=== PATIENT | female | born 1955 | race Caucasian/White ===

== ENCOUNTER 2016-11-03 13:48 | Observation (INO) | payer MEDICARE ==
[~2016-11-03] VITALS: Ht 160 cm; Wt 77.1 kg
[2016-11-03 15:12] LABS: HEMOGLOBIN 11.9 gm/dl (12.3-15.3); RED BLOOD COUNT 3.8 M/UL (4.00-5.10); WHITE BLOOD COUNT 4.2 K/UL (4.5-11.0)
[2016-11-03 15:37] LABS: BUN/CREATININE RATIO 16 (0-10)
[2016-11-04 05:49] LABS: HEMOGLOBIN 12.2 gm/dl (12.3-15.3); RED BLOOD COUNT 3.86 M/UL (4.00-5.10); WHITE BLOOD COUNT 4.9 K/UL (4.5-11.0)
[2016-11-04 06:11] LABS: BUN/CREATININE RATIO 14 (0-10)
[2016-11-04] MEDS ORDERED: SYNTHROID 50 M50 MCG PO (10:23)
[2016-11-04] MEDS ORDERED: LEVOTHYROXINE75 MCG PO (10:24)
[2016-11-04] MEDS ORDERED: CITALOPRAM HBR20 MG PO (10:24)
[2016-11-04] MEDS ORDERED: GLUCOPHAGE 500500 MG PO (10:27)
[2016-11-04] MEDS ORDERED: ZOCOR 40 MG TAB40 MG PO (10:27)
[2016-11-04] MEDS ORDERED: BACTROBAN CREAM15 GM EXT (10:28)
[2016-11-04] MEDS ORDERED: ALPRAZOLAM0.5 MG PO (10:28)
[2016-11-04] MEDS ORDERED: LORTAB 7.5-3251 EACH PO (10:29)
[2016-11-04] MEDS ORDERED: LACTULOSE20 GM/30 M PO (13:51)
== END 2016-11-04 15:19 | disposition home or self-care (01) ==
LOC: ER1 13:48 → M/S 17:50 → ZEROF 17:50 → M/S 21:37
PROVIDERS: Emergency Medicine; ADMIT Emergency Medicine
DX: K72.90 Hepatic failure, unspecified without coma (principal); K74.60 Unspecified cirrhosis of liver; K76.6 Portal hypertension; D69.6 Thrombocytopenia, unspecified; E11.9 Type 2 diabetes mellitus without complications; E78.5 Hyperlipidemia, unspecified; G89.29 Other chronic pain; F32.9 Major depressive disorder, single episode, unspecified; F41.9 Anxiety disorder, unspecified; F17.210 Nicotine dependence, cigarettes, uncomplicated; Z85.828 Personal history of other malignant neoplasm of skin; Z88.5 Allergy status to narcotic agent; Z79.84 Long term (current) use of oral hypoglycemic drugs; Z79.899 Other long term (current) drug therapy; Z90.49 Acquired absence of other specified parts of digestive tract; E89.0 Postprocedural hypothyroidism; Z98.890 Other specified postprocedural states
CPT/HCPCS: 36415; 70450; 71010; 72125; 72131; 73564; 73590; 73610; 76705; 80053; 80074; 80307; 81001; 82140; 82550; 82553; 82962; 83690; 83735; 83874; 84439; 84443; 84484; 85025; 85610; 85730; 87040; 93005; 96361; 96374; 99285; G0378; G0480; J1885; J2310; J7050; Q9962

== ENCOUNTER → 2021-10-24 | Outpatient (CLI) | payer MEDICARE ==
[~2021-10-24] MED LIST: ALPRAZOLAM0.5 MG PO; BACTROBAN CREAM15 GM EXT; CITALOPRAM HBR20 MG PO; CYMBALTA 30 MG30 MG PO; ECOTRIN81 MG PO; GLUCOPHAGE 500500 MG PO; IMDUR ER TAB 3030 MG PO; LACTULOSE20 GM/30 M PO; LEVOTHYROXINE75 MCG PO; LIPITOR TAB 2020 MG PO; LOPRESSOR 25 MG25 MG PO; LORTAB 7.5-3251 EACH PO; NITROSTAT0.4 MG SL; SYNTHROID 50 M50 MCG PO; SYNTHROID25 MCG PO; VISTARIL25 MG PO; Voltaren Gel 1 % TOP; ZOCOR 40 MG TAB40 MG PO; ZOCOR20 MG PO
== END ==
LOC: HEART 5 10-18 09:00
DX: I20.9 Angina pectoris, unspecified (principal); R00.2 Palpitations; I08.3 Combined rheumatic disorders of mitral, aortic and tricuspid valves; I27.20 Pulmonary hypertension, unspecified; R94.39 Abnormal result of other cardiovascular function study
CPT/HCPCS: 78452; 93306; A9502

== ENCOUNTER → 2021-12-09 | Outpatient (CLI) | payer MEDICARE ==
[~2021-12-09] MED LIST changes: +DIABETA 5 MG TAB5 MG PO; +FLONASE 0.05% N16 GM; +HUMALOG100 UNIT/3 SC; +ISOSORBIDE MONO30 MG PO; +JANUMET 50-1,01 EACH PO; +LANTUS SOL100 UNIT/1 SQ; +LEVOTHYROXINE75 MC1 PO; +METHOCARBAMOL500 MG PO; +NEURONTIN300 MG PO; +PROTONIX 40 MG40 M1 PO; +SINEQUAN CAP 2525 MG PO; +XANAX 0.25 MG0.25 MG PO
[2021-12-09 15:57] LABS: HEMOGLOBIN 13.3 gm/dl (12.3-15.3); WHITE BLOOD COUNT 5.1 K/UL (4.5-11.0)
[2021-12-09 16:26] LABS: BUN/CREATININE RATIO 14 (0-10)
== END ==
LOC: RAD 15:12
PROVIDERS: Internal Medicine Cardiovascular Disease
DX: I10 Essential (primary) hypertension (principal); I20.9 Angina pectoris, unspecified; R94.39 Abnormal result of other cardiovascular function study
CPT/HCPCS: 36415; 71046; 80048; 80061; 85025

== ENCOUNTER → 2021-12-13 | Outpatient (CLI) | payer MEDICARE | LOC: CATH 07:03 | DX: I25.119 Atherosclerotic heart disease of native coronary artery with unspecified angina pectoris (principal); I10 Essential (primary) hypertension; E11.9 Type 2 diabetes mellitus without complications; E78.00 Pure hypercholesterolemia, unspecified; E78.5 Hyperlipidemia, unspecified; M19.90 Unspecified osteoarthritis, unspecified site; E03.9 Hypothyroidism, unspecified; K74.60 Unspecified cirrhosis of liver; K58.9 Irritable bowel syndrome, unspecified; F17.200 Nicotine dependence, unspecified, uncomplicated; Z88.5 Allergy status to narcotic agent; Z79.4 Long term (current) use of insulin; Z79.899 Other long term (current) drug therapy | CPT/HCPCS: 82962; 99152; 99153; C1769; C1894; J1644; J2250; J3010; J7040; Q9967 ==